=== PATIENT | female | born 1995 ===

== ENCOUNTER 2017-12-21 00:18 | Inpatient (IN) ==
[2017-12-21] MEDS ORDERED: LACTATED RINGERS 250 ML IV ONE (00:45)
[2017-12-21] MEDS ORDERED: OXYTOCIN/LR 20 UNIT/1,000 ML BAG IV PRN (00:45)
[2017-12-21] MEDS ORDERED: ONDANSETRON 4 MG/2 ML VIAL IV PRN (00:45)
[2017-12-21] MEDS ORDERED: BUTORPHANOL 2 MG/ML VIAL IV PRN (00:45)
[2017-12-21 01:15] LABS: Basophils % 0.3 % (0.0-0.8); Eosinophils # 0.1 10*3/uL (0.0-0.87); Eosinophils % 1.6 % (0.00-10.9); Hematocrit 34.6 VOL% (35.7-47.0); Hemoglobin 11.7 GM/DL (12.0-16.0); Immature Granulocytes % 0.2 %; Immature Granulocytes Absolute 0.02 #; Lymphocytes # 2.2 10*3/uL (1.4-4.0); Lymphocytes % 25.2 % (21.3-54.2); Mean Corpuscular HGB Conc 33.8 GM/DL (32-36); Mean Corpuscular Hemoglobin 28 PG (27-34); Mean Corpuscular Volume 83.4 FL (87-102); Mean Platelet Volume 9.6 FL (9.6-12.0); Monocytes # 0.7 10*3/uL (0.11-0.8); Monocytes % 7.6 % (1.7-12.7); Neutrophils # 5.7 10*3/uL (1.4-7.4); Neutrophils % 65.1 % (38.7-73.9); Platelet Count 233 T/CUMM (130-400); Red Blood Count 4.15 MC/CUMM (3.8-5.5); Red Cell Distribution Width 14.7 % (9.3-17.3); White Blood Count 8.7 T/CUMM (4-12)
[2017-12-21 01:34] LABS: Alanine Aminotransferase 15 U/L (13-56); Albumin 2.5 G/DL (3.4-5.0); Alkaline Phosphatase 273 U/L (45-117); Aspartate Amino Transferase 16 U/L (0-37); Bilirubin,Total < 0.39 MG/DL (0.2-1.0); Blood Urea Nitrogen 14 MG/DL (7-18); Calcium 8.8 MG/DL (8.5-10.1); Glucose 85 MG/DL (74-106); Osmolality,Calculated 282.1 MOS/KG (273-304); Sodium 142 MMOL/L (136-145); Total Protein 6.6 G/DL (6.4-8.3)
[2017-12-21] MEDS: LACTATED RINGERS 1,000 ML IV SCH ×3 (05:10→14:28)
== END 2017-12-21 21:22 | disposition home or self-care (01) | DRG 560 ==
LOC: N.LDOUT 00:18 → N.LD 00:23
PROVIDERS: ADMIT Obstetrics & Gynecology; ATTEND Obstetrics & Gynecology

== ENCOUNTER 2017-12-25 00:29 | Inpatient (IN) ==
[2017-12-25 01:08] LABS: Basophils % 0.1 % (0.0-0.8); Eosinophils % 0.2 % (0.00-10.9); Hematocrit 35.7 VOL% (35.7-47.0); Hemoglobin 12.1 GM/DL (12.0-16.0); Immature Granulocytes % 0.6 %; Lymphocytes # 1.7 10*3/uL (1.4-4.0); Lymphocytes % 10.2 % (21.3-54.2); Mean Corpuscular HGB Conc 33.9 GM/DL (32-36); Mean Corpuscular Hemoglobin 28 PG (27-34); Mean Platelet Volume 9.3 FL (9.6-12.0); Monocytes # 1.1 10*3/uL (0.11-0.8); Monocytes % 6.4 % (1.7-12.7); Neutrophils % 82.5 % (38.7-73.9); Platelet Count 225 T/CUMM (130-400); Red Cell Distribution Width 14.8 % (9.3-17.3)
[2017-12-25 01:42] LABS: Albumin 2.4 G/DL (3.4-5.0); Bilirubin,Total 0.8 MG/DL (0.2-1.0); Calcium 8.3 MG/DL (8.5-10.1); Osmolality,Calculated 272.7 MOS/KG (273-304); Potassium 3.9 MMOL/L (3.5-5.1); Total Protein 6.7 G/DL (6.4-8.3)
[2017-12-25 02:57] LABS: Apearance,Urine CLEAR (Clear); Bilirubin,Urine Negative (Negative); Blood, Urine Negative (Negative); Glucose,Urine (UA) Negative (Negative); Ketones,Urine Negative (Negative); Mucus,Urine Occasional /LPF (Occasional); Nitrite,Urine Negative (Negative); Protein,Urine 100 MG/DL; Squamous Epithelial Cell,Urine Occasional /HPF (0-10); Urine Color Yellow (Yellow); Urine Specific Gravity 1.013 (1.001-1.035); WBC,Urine <1 /HPF (0-6)
[2017-12-26 02:49] LABS: Basophils % 0.2 % (0.0-0.8); Eosinophils # 0.2 10*3/uL (0.0-0.87); Eosinophils % 1.5 % (0.00-10.9); Hematocrit 30.5 VOL% (35.7-47.0); Hemoglobin 10.5 GM/DL (12.0-16.0); Immature Granulocytes % 0.6 %; Immature Granulocytes Absolute 0.08 #; Lymphocytes # 2.8 10*3/uL (1.4-4.0); Lymphocytes % 22.1 % (21.3-54.2); Mean Corpuscular HGB Conc 34.4 GM/DL (32-36); Mean Corpuscular Hemoglobin 28 PG (27-34); Mean Corpuscular Volume 82.2 FL (87-102); Mean Platelet Volume 10.2 FL (9.6-12.0); Monocytes # 0.8 10*3/uL (0.11-0.8); Monocytes % 6.1 % (1.7-12.7); Neutrophils # 8.7 10*3/uL (1.4-7.4); Neutrophils % 69.5 % (38.7-73.9); Platelet Count 205 T/CUMM (130-400); Red Blood Count 3.71 MC/CUMM (3.8-5.5); Red Cell Distribution Width 15.1 % (9.3-17.3); White Blood Count 12.5 T/CUMM (4-12)
[2017-12-27 07:46] VITALS: BP 133/88
== END 2017-12-27 14:50 | disposition home or self-care (01) | DRG 560 ==
LOC: N.LDOUT 00:29 → N.LD 00:32 → N.OB 07:15
PROVIDERS: ADMIT Specialist; ATTEND Obstetrics & Gynecology

== ENCOUNTER 2020-10-05 13:50 | Inpatient (IN) ==
[2020-10-05] MEDS: LACTATED RINGERS 1,000 ML IV SCH (14:30)
[2020-10-05 14:52] LABS: Basophils % 0.2 % (0.0-0.8); Eosinophils # 0.1 10*3/uL (0.0-0.87); Eosinophils % 0.7 % (0.00-10.9); Hematocrit 34.9 VOL% (35.7-47.0); Hemoglobin 11.4 GM/DL (12.0-16.0); Immature Granulocytes % 0.6 %; Immature Granulocytes Absolute 0.05 #; Lymphocytes # 1.7 10*3/uL (1.4-4.0); Lymphocytes % 21.4 % (21.3-54.2); Mean Corpuscular HGB Conc 32.7 GM/DL (32-36); Mean Corpuscular Volume 81.9 FL (87-102); Mean Platelet Volume 9.8 FL (9.6-12.0); Monocytes % 5.3 % (1.7-12.7); Neutrophils % 71.8 % (38.7-73.9); Platelet Count 244 T/CUMM (130-400); Red Blood Count 4.26 MC/CUMM (3.8-5.5); Red Cell Distribution Width 14.8 % (9.3-17.3); White Blood Count 8.1 T/CUMM (4-12)
[2020-10-05 14:55] LABS: Bacteria,Urine Occasional /HPF (Few); Bilirubin,Urine Negative (Negative); Blood, Urine Negative (Negative); Glucose,Urine (UA) Negative (Negative); Ketones,Urine Negative (Negative); Mucus,Urine Occasional /LPF (Occasional); Nitrite,Urine Negative (Negative); Protein,Urine 100 MG/DL; RBC,Urine 1 /HPF (0-4); Squamous Epithelial Cell,Urine Occasional /HPF (0-10); Urine Appearance CLEAR (Clear); Urine Color Yellow (Yellow); Urine Specific Gravity 1.016 (1.001-1.035)
[2020-10-05 15:04] LABS: INR 0.9; PT Patient Result 10.1 SECS (10.5-12.0); Partial Thromboplastin Time 28.1 SECS (23.9-33.8)
[2020-10-05 15:11] LABS: Alanine Aminotransferase 14 U/L (13-56); Albumin 2.5 G/DL (3.4-5.0); Alkaline Phosphatase 300 U/L (45-117); Aspartate Amino Transferase 20 U/L (0-37); Bilirubin,Direct < 0.100 MG/DL (0.0-0.20); Bilirubin,Total < 0.39 MG/DL (0.2-1.0); Blood Urea Nitrogen 10 MG/DL (7-18); Carbon Dioxide 24 MMOL/L (21-32); Estimated Glom Filtration Rate 132 ML/MIN; Glucose 65 MG/DL (74-106); Osmolality,Calculated 269.8 MOS/KG (273-304); Sodium 137 MMOL/L (136-145); Total Protein 6.6 G/DL (6.4-8.2); Uric Acid 4.8 MG/DL (2.6-6.0)
[2020-10-05] MEDS: LABETALOL 100 MG TABLET PO SCH ×2 (15:11→20:52)
[2020-10-05 15:52] LABS: Protein/Creatinine Ratio,Urine 1.2 RATIO
[2020-10-05] MEDS ORDERED: ACETAMINOPHEN 500 MG TABLET PO PRN (16:17)
[2020-10-05] MEDS ORDERED: NIFEdipine 10 MG CAPSULE PO ONE (16:37)
[2020-10-05] MEDS ORDERED: BUTORPHANOL 2 MG/ML VIAL IV PRN (17:02)
[2020-10-05] MEDS ORDERED: MEPERIDINE 50 MG/1 ML VIAL IV PRN (17:02)
[2020-10-05] MEDS ORDERED: ONDANSETRON 4 MG/2 ML VIAL IV PRN (17:02)
[2020-10-05] MEDS ORDERED: AMPICILLIN INJ 2,000 MG in SODIUM CHLORIDE 0.9% 100 ML IV ONE (21:00)
[2020-10-06] MEDS: AMPICILLIN INJ 1,000 MG in SODIUM CHLORIDE 0.9% 100 ML IV SCH ×3 (01:06→10:54)
[2020-10-06] MEDS: LACTATED RINGERS 1,000 ML IV SCH ×3 (07:54→16:27)
[2020-10-06] MEDS ORDERED: OXYTOCIN/LR 20 UNIT/1,000 ML BAG IV SCH (08:00)
[2020-10-06] MEDS: LABETALOL 100 MG TABLET PO SCH (08:40)
[2020-10-06] MEDS ORDERED: NIFEdipine 10 MG CAPSULE PO ONE ×3 (09:15→16:24)
[2020-10-06] MEDS ORDERED: LACTATED RINGERS 1,000 ML IV ONE (09:46)
[2020-10-06] MEDS ORDERED: NALOXONE 0.4 MG/ML VIAL IV PRN (09:46)
[2020-10-06] MEDS ORDERED: CITRIC ACID/SODIUM CITRATE 30 ML UDCUP PO ONE (09:46)
[2020-10-06] MEDS ORDERED: ePHEDrine 50 MG/ML VIAL IV PRN (09:46)
[2020-10-06] MEDS ORDERED: FAMOTIDINE 20 MG/2 ML VIAL IV ONE (09:46)
[2020-10-06] MEDS ORDERED: fentaNYL 2 MCG/ROPIV 0.2% EPID 100 ML EPIDURAL SCH (10:00)
[2020-10-06 12:07] LABS: Bilirubin,Urine Negative (Negative); Blood, Urine Negative (Negative); Glucose,Urine (UA) Negative (Negative); Ketones,Urine Negative (Negative); Mucus,Urine Occasional /LPF (Occasional); Nitrite,Urine Negative (Negative); Protein,Urine 30 MG/DL; RBC,Urine 1 /HPF (0-4); Squamous Epithelial Cell,Urine Occasional /HPF (0-10); Urine Appearance CLEAR (Clear); Urine Color Straw (Yellow); Urine Specific Gravity 1.009 (1.001-1.035); Urine Urobilinogen < 2.0 EU/DL (0.2-1.0)
[2020-10-06] MEDS ORDERED: CARBOPROST TROMETHAMINE 250 MCG/ML AMP IM ONE (14:46)
[2020-10-06] MEDS ORDERED: METHYLERGONOVINE 0.2 MG/1 ML AMP ONE (14:46)
[2020-10-06] MEDS ORDERED: miSOPROStoL 200 MCG TABLET ONE (14:46)
[2020-10-06] MEDS ORDERED: TRANEXAMIC ACID 1,000 MG/10 ML VIAL ONE (14:46)
[2020-10-06] MEDS ORDERED: OXYTOCIN/LR 20 UNIT/1,000 ML BAG IV ONE ×2 (14:46→18:12)
[2020-10-06 16:16] LABS: Cord Arterial Blood HCO3 22.2 MMOL/L
[2020-10-06 16:19] LABS: Cord Venous Blood HCO3 22.1 MMOL/L; Cord Venous Blood PCO2 39.6 MMHG
[2020-10-06] MEDS ORDERED: IBUPROFEN 800 MG TABLET PO PRN (18:12)
[2020-10-06] MEDS ORDERED: RHO(D) IMMUNE GLOBULIN 300 MCG SYRINGE IM ONE (18:12)
[2020-10-06] MEDS ORDERED: ACETAMINOPHEN 325 MG TABLET PO PRN (18:12)
[2020-10-06] MEDS ORDERED: oxyCODONE/ACETAMINOPHEN 5-325 MG TABLET PO PRN ×2 (18:12)
[2020-10-06] MEDS ORDERED: WITCH HAZEL PADS 100/JAR TOP PRN (18:12)
[2020-10-06] MEDS ORDERED: MEASLES/MUMPS/RUBELLA VACCINE 0.5 ML VIAL SUBCUT ONE (18:12)
[2020-10-06] MEDS ORDERED: BENZOCAINE 20%/MENTHOL 0.5% SPRAY 56 GM CAN TOP PRN (18:12)
[2020-10-06] MEDS ORDERED: DIPH/TET/ACEL PERT BOOSTER VACCINE 0.5 ML VIAL IM ONE (18:12)
[2020-10-06] MEDS ORDERED: LANOLIN 50% CREAM 0.3 OZ TUBE TOP PRN (18:12)
[2020-10-06] MEDS ORDERED: HYDROCORTISONE 2.5% RECTAL CREAM 30 GM TUBE TOP PRN (18:12)
[2020-10-06] MEDS ORDERED: BISACODYL 10 MG SUPP RECTAL PRN (18:12)
[2020-10-06] MEDS: DOCUSATE SODIUM 100 MG CAPSULE PO SCH (21:04)
[2020-10-07 05:32] LABS: Basophils % 0.2 % (0.0-0.8); Eosinophils # 0.1 10*3/uL (0.0-0.87); Hematocrit 30.2 VOL% (35.7-47.0); Hemoglobin 9.8 GM/DL (12.0-16.0); Immature Granulocytes % 0.5 %; Immature Granulocytes Absolute 0.07 #; Lymphocytes # 3.3 10*3/uL (1.4-4.0); Lymphocytes % 24.5 % (21.3-54.2); Mean Corpuscular HGB Conc 32.5 GM/DL (32-36); Mean Corpuscular Volume 83.2 FL (87-102); Mean Platelet Volume 10.3 FL (9.6-12.0); Monocytes % 5.9 % (1.7-12.7); Neutrophils % 67.9 % (38.7-73.9); Platelet Count 177 T/CUMM (130-400); Red Blood Count 3.63 MC/CUMM (3.8-5.5); Red Cell Distribution Width 14.8 % (9.3-17.3); White Blood Count 13.6 T/CUMM (4-12)
[2020-10-07] MEDS: DOCUSATE SODIUM 100 MG CAPSULE PO SCH ×2 (08:35→21:20)
[2020-10-08] MEDS: DOCUSATE SODIUM 100 MG CAPSULE PO SCH (08:41)
[2020-10-08 09:33] VITALS: BP 132/91
== END 2020-10-08 11:39 | disposition home or self-care (01) | DRG 560 ==
LOC: N.LDOUT 13:50 → N.LD 13:51 → N.OB 10-06 18:13
PROVIDERS: ADMIT Obstetrics & Gynecology; ATTEND Obstetrics & Gynecology

== ENCOUNTER 2021-08-28 13:35 | Observation (INO) ==
[2021-08-28] MEDS ORDERED: ONDANSETRON 4 MG/2 ML VIAL IV STA (14:33)
[2021-08-28] MEDS ORDERED: PIPERACILLIN/TAZOBACTAM 3,375 MG in SODIUM CHLORIDE 0.9% 100 ML IV STA (14:33)
[2021-08-28] MEDS ORDERED: PANTOPRAZOLE 40 MG VIAL IV STA (14:33)
[2021-08-28] MEDS ORDERED: SODIUM CHLORIDE 0.9% 1,000 ML IV STA (14:33)
[2021-08-28] MEDS ORDERED: BUPIVACAINE MPF 0.25% 10 ML VIAL ONE (15:08)
[2021-08-28] MEDS ORDERED: TISSUE ADHESIVE 1 EACH APPLICATOR TOP ONE (15:08)
[2021-08-28] MEDS ORDERED: LIDOCAINE 1%/EPI INJ 20 ML VIAL ONE (15:08)
[2021-08-28] MEDS ORDERED: fentaNYL 100 MCG/2 ML VIAL ONE (15:19)
[2021-08-28] MEDS ORDERED: KETOROLAC 30 MG/1 ML VIAL ONE (15:32)
[2021-08-28] MEDS ORDERED: DEXAMETHASONE 4 MG/1 ML VIAL ONE ×2 (15:36)
[2021-08-28] MEDS ORDERED: LIDOCAINE 2% 5 ML VIAL ONE (15:37)
[2021-08-28] MEDS ORDERED: SEVOFLURANE 1 UNIT/15 MINUTE INH ONE (15:37)
[2021-08-28] MEDS ORDERED: ROCURONIUM 50 MG/5 ML VIAL IV ONE (15:37)
[2021-08-28] MEDS ORDERED: propofoL 200 MG/20 ML VIAL IV ONE (15:37)
[2021-08-28] MEDS ORDERED: GLYCOPYRROLATE 0.4 MG/2 ML VIAL ONE (15:52)
[2021-08-28] MEDS ORDERED: NEOSTIGMINE 10 MG/10 ML VIAL ONE (15:53)
[2021-08-28] MEDS ORDERED: SUGAMMADEX 200 MG/2 ML VIAL IV ONE (15:58)
[2021-08-28] MEDS ORDERED: HYDROmorphone 1 MG/1 ML SYRINGE IV PRN (16:01)
[2021-08-28] MEDS ORDERED: ONDANSETRON 4 MG/2 ML VIAL IV PRN (16:07)
[2021-08-28] MEDS ORDERED: oxyCODONE/ACETAMINOPHEN 5-325 MG TABLET PO PRN (16:07)
[2021-08-29] MEDS: DEXTROSE 5% LACTATED RINGERS 1,000 ML IV SCH ×3 (01:06→09:44)
[2021-08-29] MEDS ORDERED: PANTOPRAZOLE 40 MG TABLET PO SCH (09:00)
[2021-08-29 11:42] VITALS: BP 117/60
== END 2021-08-29 12:41 | disposition home or self-care (01) ==
LOC: N.3E 13:35 → N.ED 13:35 → N.3E 15:30
PROVIDERS: ADMIT Surgery; ATTEND Surgery